=== PATIENT | female | born 1975 | race Caucasian/White ===

== ENCOUNTER → 2018-05-13 | Day surgery (SDC) | payer OTHER ==
--- NOTE | 2018-05-17 14:20 | PATH ---
Surgical Pathology Report Patient Name: PATRICIA HILLMAN [facility]. Rec. #: [id number] /Age/Gender: 1975 (Age: 42) / F Account: [id number] Location: [facility] Taken: 05/13/2018 Received: 05/13/2018 Reported: 05/17/2018 Physicians: Deny Gomez M.D. Specimen(s) Received A: LEFT BREAST SPECIMEN WITH CALCIFICATIONS B: LEFT BREAST SPECIMEN WITHOUT CALCIFICATIONS Clinical History Nonpalpable lesion Mammographic findings: Microcalcification, suspicious Final Diagnosis A. BREAST, LEFT, WITH CALCIFICATIONS, STEREOTACTIC CORE BIOPSY: ATYPICAL DUCTAL HYPERPLASIA AND SMALL INTRADUCTAL PAPILLOMA WITH ASSOCIATED MICROCALCIFICATIONS. FIBROCYSTIC CHANGES INCLUDING STROMAL FIBROSIS, MICROCYSTS, AND ADENOSIS. B. BREAST, LEFT, WITHOUT CALCIFICATIONS, STEREOTACTIC CORE BIOPSY: ATYPICAL DUCTAL HYPERPLASIA IN A BACKGROUND OF FIBROCYSTIC CHANGES. Comment: Immunohistochemical stain performed and interpreted at [facility] for E-Cadherin was utilized to evaluate this case. Electronically Signed Flori Duncan M.D. Gross Description A. Received in formalin labeled "left breast with calcifications," is a 2.2 x 2.0 x 0.3 cm aggregate of multiple mejias-yellow, irregular to cylindrical portions of fibroadipose tissue. The formalin is filtered and the specimen is entirely submitted in one cassette. B. Received in formalin labeled "left breast without calcifications," is a 1.8 x 1.5 x 0.3 cm aggregate of multiple mejias-yellow, irregular to cylindrical portions of fibroadipose tissue. The formalin is filtered and the specimen is entirely submitted in one cassette. Time to formalin fixation: 5 minutes Total formalin fixation time: Approximately 29 hours. 05/14/201805/14/2018
== END | disposition home or self-care (01) ==
LOC: FMAMMOTONE 11:17
PROVIDERS: ATTEND Surgery Surgical Oncology
PROC: 0HBU3ZX Excision of Left Breast, Percutaneous Approach, Diagnostic (ICD-10-PCS; principal; 2018-05-13)
DX: D24.2 Benign neoplasm of left breast (principal); R92.1 Mammographic calcification found on diagnostic imaging of breast; N60.12 Diffuse cystic mastopathy of left breast; N60.32 Fibrosclerosis of left breast; N64.89 Other specified disorders of breast
CPT/HCPCS: 19081; 87899; 88305-TC; 88342-TC; A4648

== ENCOUNTER → 2018-07-06 | Day surgery (SDC) | payer OTHER ==
--- NOTE | 2018-06-30 15:01 | HP ---
Admitting History and Physical - Primary Care Physician PCP: Dexter Dunn - Admission Chief Complaint: Left breast atypia History of Present Illness: 43 year old premenapausal female with family H/O breast cancer presents with screening mammogram showing calcifications left breast which were found to be new on compression views Birad 4.Left breast stereotactic core biopsy 05/13/2018 showed ADH and intraductal papilloma. Breast MRI 06/08/2018 benign findings and 4.7 cm hematoma S/P core biopsy. Birad 2. 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 ...LMP: 08/11/11 - Past Surgical History Past Surgical History: Yes: Tonsillectomy Additional Past Surgical History: gastric lapband 2010 gastric sleeve 2014 pilonidal cyst 2003 - Smoking History Smoking history: Current every day smoker Have you smoked in the past 12 months: Yes Aproximately how many cigarettes per day: 10 - Alcohol/Substance Use Hx Alcohol Use: Yes (RARE) Home Medications - Allergies Allergies/Adverse Reactions: Allergies Allergy/AdvReac Type Severity Reaction Status Date / Time No Known Drug Allergies Allergy Verified 08/22/11 10:03 NKA Allergy Uncoded 08/19/11 15:26 - Home Medications Home Medications: Ambulatory Orders Ibuprofen [Motrin] 800 mg PO TID #20 tablet 01/18/14 Pseudoephedrine HCl [Sudafed] 30 mg PO Q6H #20 tablet 01/18/14 Sumatriptan Succinate [Imitrex] 0 mg PO DAILY PRN 01/18/14 Topiramate [Topamax] 50 mg PO BID 01/18/14 Family Disease History - Family Disease History Family Disease History: CA: Grandparent (mat GM breast and vulvar), Mother ( breast ca 54) Other Family History: Mat GGF CRC. mat GF lung ca. pat aunt GI cancer Physical Examination Constitutional: Yes: Well Nourished, No Distress Breast(s): Yes: Other (diffusely nodular no palpaable mass or adenopathy resolving left breast hematoma) Problem List - Problems (1) Atypical ductal hyperplasia of left breast Code(s): N60.92 - UNSPECIFIED BENIGN MAMMARY DYSPLASIA OF LEFT BREAST Assessment/Plan Left breast wide excision mammogram needle localization
[2018-07-01 15:48] VITALS: BMI 23.5
[2018-07-06 07:29] VITALS: BP 134/97; PULSE 68; TEMP 98.3
== END | disposition home or self-care (01) ==
LOC: FASU 06:37
PROVIDERS: ATTEND Surgery Surgical Oncology
PROC: 0HBU0ZX Excision of Left Breast, Open Approach, Diagnostic (ICD-10-PCS; principal; 2018-07-06)
DX: N60.92 Unspecified benign mammary dysplasia of left breast (principal); Z85.3 Personal history of malignant neoplasm of breast
CPT/HCPCS: 77065-TC; 84703

== ENCOUNTER → 2018-07-07 | Day surgery (SDC) | payer OTHER ==
--- NOTE | 2018-07-08 10:09 | PATH ---
Surgical Pathology Report Patient Name: PATRICIA HILLMAN [facility]. Rec. #: [id number] /Age/Gender: 1975 (Age: 43) / F Account: [id number] Location: [facility] Taken: 07/07/2018 Received: 07/07/2018 Reported: 07/08/2018 Physicians: Dexter Dunn M.D. Specimen(s) Received A: LEFT BREAST SPECIMEN-WITH CALCIFICATIONS B: LEFT BREAST SPECIMEN-WITHOUT CALCIFICATIONS Clinical History Nonpalpable lesion Mammographic findings: Microcalcification, suspicious Final Diagnosis A. BREAST, LEFT, WITH CALCIFICATIONS, STEREOTACTIC CORE BIOPSY: BENIGN BREAST PARENCHYMA WITH FIBROCYSTIC CHANGES INCLUDING STROMAL FIBROSIS, MICROCYSTS, COLUMNAR CELL CHANGES, AND ASSOCIATED MICROCALCIFICATIONS. B. BREAST, LEFT, WITHOUT CALCIFICATIONS, STEREOTACTIC CORE BIOPSY: BENIGN BREAST PARENCHYMA WITH FIBROCYSTIC CHANGES INCLUDING STROMAL FIBROSIS AND MICROCYSTS. Electronically Signed Flori Duncan M.D. Gross Description A. Received in formalin labeled "left breast with calcifications," are 8 mejias-yellow, cylindrical portions of fibroadipose tissue ranging from 0.9-3.8 cm in length and averaging 0.3 cm in diameter. The specimens are submitted in toto in 2 cassettes. B. Received in formalin labeled "left breast without calcifications," are 2 mejias-yellow, cylindrical portions of fibroadipose tissue measuring 3.5 and 4.0 cm in length and averaging 0.3 cm in diameter. The specimens are submitted in toto in one cassette. Time to formalin fixation: 5 minutes Total formalin fixation time: Approximately 6 hours. /07/07/2018 [facility]07/07/2018
== END | disposition home or self-care (01) ==
LOC: FMAMMOTONE 10:33
PROVIDERS: ATTEND Surgery Surgical Oncology
PROC: 0HBU3ZX Excision of Left Breast, Percutaneous Approach, Diagnostic (ICD-10-PCS; principal; 2018-07-07)
DX: N60.32 Fibrosclerosis of left breast (principal); N60.12 Diffuse cystic mastopathy of left breast; N64.89 Other specified disorders of breast; N63.21 Unspecified lump in the left breast, upper outer quadrant
CPT/HCPCS: 19081; 87899; 88305-TC; A4648

== ENCOUNTER 2018-08-10 06:24 | Day surgery (SDC) | payer OTHER ==
[2018-07-30 11:16] VITALS: BMI 25.0
--- NOTE | 2018-07-30 15:07 | HP ---
Admitting History and Physical - Primary Care Physician PCP: Dexter Dunn - Admission Chief Complaint: Left breast atypia History of Present Illness: 43 year old premenapausal female with Left breast stereotactic core biopsy showing ADH 04/2018. Radiologist reveiwed films and noted another area that needed biopsied which was done on 07/07/2018 showing left breast benign fibrocystic changes. MRI breast 05/2018 showed benign findings and left breast hematoma which clinically was resolving. 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 ...LMP: 07/18/18 ...: No - Past Surgical History Past Surgical History: Yes: Tonsillectomy Additional Past Surgical History: gastric lap band 2010 and sleeve 2015 pilonidal cyst 2004 Left breast core bxs 04/2018 showing left breast ADH and 06/2018 benihn - Smoking History Smoking history: Current every day smoker Have you smoked in the past 12 months: Yes Aproximately how many cigarettes per day: 10 - Alcohol/Substance Use Hx Alcohol Use: Yes (social) Home Medications - Allergies Allergies/Adverse Reactions: Allergies Allergy/AdvReac Type Severity Reaction Status Date / Time No Known Drug Allergies Allergy Verified 07/30/18 11:08 NKA Allergy Uncoded 07/06/18 07:25 - Home Medications Home Medications: Ambulatory Orders Atenolol [Tenormin] 25 mg PO DAILY 07/01/18 Erenumab-Aooe [Aimovig Autoinjector] 70 mg SQ MONTHLY 07/01/18 Botulinum Toxin A [Botox (Nf)] 100 units IJ ASDIR 07/30/18 Family Disease History - Family Disease History Family Disease History: CA: Grandparent (mat GM breast and vulvar), Mother ( breast ca 54) Other Family History: mat GGF CRC. mat GF lung ca. pat aunt GI cancer Physical Examination Constitutional: Yes: Well Nourished Breast(s): Yes: Other (diffusely dense post bx changes left breast no masses or adenopathy) Problem List - Problems (1) Atypical ductal hyperplasia of left breast Code(s): N60.92 - UNSPECIFIED BENIGN MAMMARY DYSPLASIA OF LEFT BREAST Assessment/Plan left breast wide excision with mammogram needle localization
[2018-08-10] MEDS ORDERED: PROPOFOL 20 ML ONE (09:49)
[2018-08-10] MEDS ORDERED: LIDOCAINE HCL 1% PRESERVATIVE FREE - 30ML VIAL ONE (09:49)
[2018-08-10] MEDS ORDERED: GUM MASTIC/STORAX/MSAL/ALCOHOL 1 DRP DROPSBTL MC ONE (09:49)
[2018-08-10] MEDS ORDERED: MIDAZOLAM HCL 2 MG/2 ML SINGLE DOSE VIAL ONE (09:49)
[2018-08-10] MEDS ORDERED: BUPIVACAINE HCL/PF 2.5 MG/ML - 30 ML VIAL IJ ONE (09:49)
[2018-08-10] MEDS ORDERED: DEXAMETHASONE SOD PHOSPHATE 4 MG/1 ML VIAL ONE (10:24)
[2018-08-10] MEDS ORDERED: LIDOCAINE HCL/PF 2% SDV 5ML VIAL ONE (10:24)
[2018-08-10] MEDS ORDERED: KETOROLAC TROMETHAMINE 30 MG/1 ML VIAL ONE (10:24)
[2018-08-10] MEDS ORDERED: LIDOCAINE HCL 2% JELLY (5 ML/TUBE) ONE (10:24)
[2018-08-10] MEDS ORDERED: ONDANSETRON 4 MG/2 ML VIAL ONE (10:24)
[2018-08-10] MEDS ORDERED: ceFAZolin SODIUM 1 GM VIAL ONE (10:24)
[2018-08-10] MEDS ORDERED: BUPIVACAINE HCL/PF 0.25% (2.5MG/ML) 10 ML VIAL IJ ONE (10:45)
[2018-08-10] MEDS ORDERED: ONDANSETRON 4 MG/2 ML VIAL IVPUSH PRN ×2 (11:08→11:14)
[2018-08-10] MEDS ORDERED: KETOROLAC TROMETHAMINE 30 MG/1 ML VIAL IVPUSH PRN (11:08)
[2018-08-10] MEDS ORDERED: oxyCODONE HCL 5 MG TABLET PO PRN ×2 (11:14)
[2018-08-10] MEDS ORDERED: PROMETHAZINE HCL 25 MG/1 ML VIAL IVPUSH PRN (11:14)
[2018-08-10] MEDS ORDERED: DEXTROSE 5%-0.45% SALINE 1,000 ML IV SCH (11:15)
[2018-08-10 11:49] VITALS: TEMP 98.1
[2018-08-10 12:19] VITALS: BP 120/82; PULSE 78
--- NOTE | 2018-08-10 17:47 | OP ---
DATE OF OPERATION: 08/10/2018 PREOPERATIVE DIAGNOSIS: Left breast atypical ductal hyperplasia. POSTOPERATIVE DIAGNOSIS: Left breast atypical ductal hyperplasia. PROCEDURE: Left mammographically localized partial mastectomy. ANESTHESIA: General intubated. ATTENDING SURGEON: Dexter Dunn MD GROCERY DELIVERER: TURNER Hammonds ESTIMATED BLOOD LOSS: Minimal. COMPLICATIONS: None. DESCRIPTION OF PROCEDURE: Patient was made aware of the risks and benefits of the procedure and consented. She was placed in the supine position. After going to the radiology suite, a needle and wire was placed next to the index lesion. After general anesthesia was induced, the patient was intubated. The operative site was prepped and draped in the usual sterile fashion. A curvilinear incision was made next to the wire using electrocautery. Thick skin flaps were made and the needle was withdrawn through the puncture site and the wire was removed. The tissues around the wire were then sharply excised and submitted with a short suture superior and long suture lateral. Specimen radiograph confirmed the presence of the index lesion. Palpation of the wound showed additional anterior and posterior firm nodules and these were excised separately and sutures were placed at the new margins. The wound was copiously irrigated with normal saline. Hemostasis was maintained by electrocautery. The wound was then closed with deep 2-0 Vicryl followed by deep 3-0 Vicryl followed by a running subcuticular 4-0 Monocryl. Steri-Strips, sterile dressings, and a compression bra were then applied. The patient tolerated the procedure well and was transferred to the recovery room in excellent condition. Alysha [id number]
--- NOTE | 2018-08-13 16:30 | PATH ---
Surgical Pathology Report Patient Name: PATRICIA HILLMAN [facility]. Rec. #: [id number] /Age/Gender: 1975 (Age: 43) / F Account: [id number] Location: [facility] Taken: 08/10/2018 Received: 08/10/2018 Reported: 08/13/2018 Physicians: Dexter Dunn M.D. Specimen(s) Received A: LEFT BREAST WIDE EXCISION B: LEFT BREAST DEEP SEGMENT C: LEFT BREAST ANTERIOR SEGMENT Clinical History Atypia Final Diagnosis A. BREAST, LEFT, WIDE EXCISION: FOCAL ATYPICAL LOBULAR HYPERPLASIA (ALH), COLUMNAR CELL CHANGE, CYSTIC APOCRINE METAPLASIA AND MILD USUAL DUCTAL HYPERPLASIA (UDH) WITH ASSOCIATED CALCIFICATIONS. PRIOR BIOPSY SITE CHANGES ARE PRESENT. (SEE NOTE) B. BREAST, LEFT, DEEP SEGMENT, EXCISION: ATYPICAL LOBULAR HYPERPLASIA (ALH), COLUMNAR CELL CHANGE, MICROCYST FORMATION AND MILD USUAL DUCTAL HYPERPLASIA (UDH) WITH FEW ASSOCIATED CALCIFICATIONS. (SEE NOTE) C. BREAST, LEFT, ANTERIOR SEGMENT, EXCISION: BENIGN BREAST TISSUE SHOWING CYSTIC APOCRINE METAPLASIA, COLUMNAR CELL CHANGE AND STROMAL FIBROSIS. Note: E-Cadherin immunostains (performed at [facility] on blocks A6 & B3) demonstrate the lack of reactivity in the foci of ALH. This finding supports the diagnosis. Electronically Signed Xi Arias M.D. Gross Description A. Received in formalin, labeled "left breast wide excision," is a 4.3 x 2.8 x 1.8 cm. mejias-yellow, irregular, portion of fibroadipose tissue with a needle localization wire present. There is a short suture marking the superior aspect and a long suture marking the lateral aspect, per the surgeon. There is no skin present. The specimen is inked as follows: superior and lateral blue; inferior green; medial yellow; anterior red; deep black. The specimen is serially sectioned from medial to lateral. Sectioning reveals a hemorrhagic previous biopsy cavity focally abutting the medial and superior margins. The cavity is surrounded by dense white fibrous tissue. No definitive mass is identified. The specimen is entirely and sequentially submitted in 10 cassettes with the medial margin in cassette 1 and lateral margin in cassette 10. Time to formalin fixation: 10 minutes Total formalin fixation time: Approximately 31 hours. B. Received in formalin labeled "left breast deep segment," is a 2.0 x 2.0 x 0.7 cm portion of fibroadipose tissue with a suture marking the new margin, per the surgeon. The new margin is inked blue and the specimen is serially sectioned. The specimen is entirely submitted in 3 cassettes. C. Received in formalin labeled "left breast anterior segment," is a 3.0 x 2.3 x 1.5 cm portion of fibroadipose tissue with a suture marking the new margin, per the surgeon. The new margin is inked blue and the specimen is serially sectioned. The specimen is entirely submitted in 3 cassettes. 08/11/2018 [facility]08/11/2018
== END 2018-08-10 12:21 | disposition home or self-care (01) ==
LOC: FASU 06:24
PROVIDERS: ATTEND Surgery Surgical Oncology
PROC: 0HBU0ZZ Excision of Left Breast, Open Approach (ICD-10-PCS; principal; 2018-08-10 10:00)
DX: N60.89 Other benign mammary dysplasias of unspecified breast (principal); N60.12 Diffuse cystic mastopathy of left breast; N60.82 Other benign mammary dysplasias of left breast; N64.89 Other specified disorders of breast
CPT/HCPCS: 19281; 84703; 88307-TC; 88342-TC; 94760

== ENCOUNTER 2023-10-03 19:27 | Emergency (ER) | payer OTHER ==
[2023-10-03 19:51] VITALS: BP 149/99; PULSE 91; RESP 16; TEMP 99; BMI 25.0
== END 2023-10-03 21:31 | disposition home or self-care (01) ==
LOC: FER 19:27
DX: S92.511A Displaced fracture of proximal phalanx of right lesser toe(s), initial encounter for closed fracture (principal); W22.8XXA Striking against or struck by other objects, initial encounter
CPT/HCPCS: 73630-TC-RT-FY; 99283-25